=== PATIENT | female | born 1940 ===

== ENCOUNTER 2021-07-02 05:39 | Observation (INO) ==
[2021-07-02] MEDS ORDERED: DEXTROSE 50% 25 GM/50 ML VIAL IV PRN (09:00)
[2021-07-02] MEDS ORDERED: ACETAMINOPHEN 325 MG TABLET PO PRN (09:00)
[2021-07-02] MEDS ORDERED: ONDANSETRON 4 MG/2 ML VIAL IV PRN (09:00)
[2021-07-02] MEDS ORDERED: GLUCAGON 1 MG VIAL IM PRN (09:00)
[2021-07-02 09:56] LABS: Basophils # 0.1 10*3/uL (0.0-0.2); Basophils % 0.8 % (0.0-0.8); Eosinophils # 0.2 10*3/uL (0.0-0.87); Eosinophils % 3.1 % (0.00-10.9); Hemoglobin 13.6 GM/DL (12.0-16.0); Immature Granulocytes % 0.3 %; Immature Granulocytes Absolute 0.02 #; Lymphocytes % 30.4 % (21.3-54.2); Mean Corpuscular HGB Conc 32.4 GM/DL (32-36); Mean Corpuscular Volume 99.1 FL (87-102); Mean Platelet Volume 10.8 FL (9.6-12.0); Monocytes % 8.7 % (1.7-12.7); Neutrophils % 56.7 % (38.7-73.9); Platelet Count 231 T/CUMM (130-400); Red Blood Count 4.24 MC/CUMM (3.8-5.5); Red Cell Distribution Width 13.2 % (9.3-17.3); White Blood Count 6.4 T/CUMM (4-12)
[2021-07-02 10:25] LABS: Alanine Aminotransferase 20 U/L (13-56); Albumin 3.3 G/DL (3.4-5.0); Alkaline Phosphatase 67 U/L (45-117); Aspartate Amino Transferase 15 U/L (0-37); Bilirubin,Total < 0.39 MG/DL (0.20-1.00); Blood Urea Nitrogen 23 MG/DL (7-18); Calcium 8.6 MG/DL (8.5-10.1); Carbon Dioxide 26 MMOL/L (21-32); Estimated Glom Filtration Rate 49 ML/MIN; Glucose 98 MG/DL (74-106); HDL Cholesterol 48 MG/DL (40-60); Osmolality,Calculated 280.5 MOS/KG (273-304); Potassium 4.1 MMOL/L (3.5-5.1); Risk Ratio 4.35; Sodium 139 MMOL/L (136-145); Triglycerides 118 MG/DL (2-150); VLDL Cholesterol 23.6 MG/DL
[2021-07-02] MEDS: ENOXAPARIN 40 MG/0.4 ML SYRINGE SUBCUT SCH (10:31)
[2021-07-02] MEDS: CHOLECALCIFEROL 1,000 UNIT TABLET PO SCH (10:32)
[2021-07-02] MEDS: VERAPAMIL SR 180 MG TABLET PO SCH (10:32)
[2021-07-02] MEDS: PANTOPRAZOLE 40 MG TABLET PO SCH (10:32)
[2021-07-02] MEDS: lisinopriL 10 MG TABLET PO SCH (10:32)
[2021-07-02] MEDS: CALCIUM (CARBONATE)/VITAMIN D 600 MG-400 UNIT TABLET PO SCH (10:36)
[2021-07-02] MEDS: LEVOTHYROXINE 150 MCG TABLET PO SCH (10:36)
[2021-07-03 05:27] LABS: Calcium 8.6 MG/DL (8.5-10.1); Osmolality,Calculated 281.4 MOS/KG (273-304); Potassium 4.2 MMOL/L (3.5-5.1)
[2021-07-03 08:00] VITALS: BP 142/73
[2021-07-03] MEDS: LEVOTHYROXINE 150 MCG TABLET PO SCH (08:26)
[2021-07-03] MEDS: CALCIUM (CARBONATE)/VITAMIN D 600 MG-400 UNIT TABLET PO SCH (08:26)
[2021-07-03] MEDS: ENOXAPARIN 40 MG/0.4 ML SYRINGE SUBCUT SCH (08:26)
[2021-07-03] MEDS: VERAPAMIL SR 180 MG TABLET PO SCH (08:26)
[2021-07-03] MEDS: lisinopriL 10 MG TABLET PO SCH (08:26)
[2021-07-03] MEDS: CHOLECALCIFEROL 1,000 UNIT TABLET PO SCH (08:26)
[2021-07-03] MEDS: PANTOPRAZOLE 40 MG TABLET PO SCH (08:26)
== END 2021-07-03 11:08 | disposition home or self-care (01) ==
LOC: N.TELES → SUATTDRO 08:33
PROVIDERS: ADMIT Internal Medicine; ATTEND Internal Medicine Geriatric Medicine